=== PATIENT | female | born 1990 | race Hispanic/Latino ===

== ENCOUNTER 2024-04-03 12:12 | Emergency (ER) | payer BC ==
[~2024-04-03] VITALS: Ht 154.9 cm; Wt 68.0 kg
[2024-04-03 13:06] VITALS: BP 120/70; PULSE 76; RESP 16
== END 2024-04-03 13:23 | disposition home or self-care (01) ==
LOC: EDH 12:12
DX: T19.2XXA Foreign body in vulva and vagina, initial encounter (principal); Z71.1 Person with feared health complaint in whom no diagnosis is made; W44.8XXA Other foreign body entering into or through a natural orifice, initial encounter; Y93.89 Activity, other specified; Y92.89 Other specified places as the place of occurrence of the external cause; Y99.8 Other external cause status

== ENCOUNTER 2024-10-15 18:09 | Emergency (ER) | payer BC, OTHER ==
[~2024-10-15] VITALS: Ht 154.9 cm; Wt 70.3 kg
[2024-10-15 19:05] LABS: APPEARANCE,URINE CLOUDY (CLEAR); BILIRUBIN,URINE NEGATIVE (NEGATIVE); COLOR,URINE LIGHT-BROWN (YELLOW); GLUCOSE, URINE (UA) NEGATIVE (NEGATIVE); KETONES,URINE NEGATIVE (NEGATIVE); LEUKOCYTE ESTERASE ,URINE 250 Leu/uL (NEGATIVE); NITRATE,URINE NEGATIVE (NEGATIVE); OCCULT BLOOD,URINE LARGE (NEGATIVE); PROTEIN,URINE 30 mg/dL (NEGATIVE); UROBILINOGEN,URINE 0.2 mg/dL (0.2-1.0)
[2024-10-15 19:07] LABS: ADD UA MICROSCOPIC YES
[2024-10-15 19:09] LABS: HCG,QUALITATIVE URINE NEGATIVE (NEGATIVE)
[2024-10-15 19:17] LABS: RBC,URINE TNTC /HPF (0-1); WBC,URINE 26-50 /HPF (0-1)
--- NOTE | 2024-10-15 19:28 | ERN ---
General Chief Complaint: Blood in Urine: Stated Complaint: BLOOD IN URINE Time Seen by MD: 18:14 Time Seen by Midlevel: 18:14 Source: patient History of Present Illness Initial Comments Patient is a 34-year-old female with no significant past medical history presenting to the emergency department with hematuria and dysuria that started today. She reports going her symptoms and believes she may have bladder cancer. Denies being on her period. Denies . Allergies: Coded Allergies: No Known Drug Allergies (Unverified Allergy, Unknown, 04/03/24) Home Meds Active Scripts Sulfamethoxazole/Trimethoprim (Bactrim Ds Tablet) 800 Mg-160 Mg Tablet, 1 TAB PO BID for 7 Days, #14 TAB 0 Refills Prov:YANE ODONNELL 10/15/24 Past Medical History Past Medical History: No Pertinent History Past Surgical History: BTL Female( History) LMP: Sep 30, 2024 ROS Dictation CONSTITUTIONAL: Negative except for HPI HEAD/FACE: Negative except for HPI EENT: Negative except for HPI RESPIRATORY: Negative except for HPI GASTROINTESTINAL/ABDOMINAL: Negative except for HPI GENITOURINARY: Negative except for HPI MUSCULOSKELETAL: Negative except for HPI INTEGUMENTARY: Negative except for HPI NEUROLOGICAL/PSYCH: Negative except for HPI HEMATOLOGIC/LYMPHATIC: Negative except for HPI All Systems Negative, Except as noted above. 13 point review of systems assessed and all negative except for above. Physical Exam Physical Exam Dictation Vital Signs reviewed General Appearance: Alert, oriented x 3, no acute distress, well developed, nourished. Head and Face: non-traumatic. Eyes: PERRL, pink conjunctivas, eyelid no trauma, anterior chamber with arcus senilis. Ears: Pinnas intact and no signs of trauma or erythema ear canals clear and no discharge TM no erythema Nose: No discharge, no bleeding. Oropharynx: Mouth normal, tongue pink, pharynx clear,no erythema, tonsils no exudates, no abscesses noted, mucous membrane moist Neck: Supple, non-tender, no thyromegaly, no masses, no JVD, no bruits Breast:Deferred Chest:No tenderness, no crepitus, no paradoxical movement, no retractions Lungs:Clear, well-ventilated, symmetric, no rales, no wheezing, no rhonchi, no stridor, good breath sounds bilaterally Heart: Regular rate, regular rhythm, no murmur, no gallops Vascular: no peripheral edema, Abdomen: Soft, positive bowel sounds, nondistended, no guarding, nontender, no rebound, no masses no hepatomegaly, no splenomegaly, no Bennett's sign, no hernias. Rectal: Deferred Genital: Deferred Neurological: Normal speech, motor function intact, sensory function intact Musculoskeletal: Neck nontender, full range of motion, back nontender, full range of motion, Extremities: nontender, full range of motion Skin: Color pink, dry, no turgor, no rash, no lacerations, no abrasions, no contusions. Lymphatic: Deferred Results Laboratory and Microbiology Lab and Micro Result Laboratory Tests Test 10/15/24 18:44 10/15/24 19:16 Urine Color LIGHT-BROWN (YELLOW) Urine Appearance CLOUDY (CLEAR) H Urine pH 7.0 (5.0-8.0) Urine Specific [place] 1.011 (1.001-1.031) Urine Protein 30 mg/dL (NEGATIVE) H Urine Glucose (UA) NEGATIVE mg/dL (NEGATIVE) Urine Ketones NEGATIVE mg/dL (NEGATIVE) Urine Occult Blood LARGE (NEGATIVE) H Urine Nitrate NEGATIVE (NEGATIVE) Urine Bilirubin NEGATIVE mg/dL (NEGATIVE) Urine Urobilinogen 0.2 mg/dL (0.2-1.0) Urine Leukocyte Esterase 250 Shaka/uL (NEGATIVE) H Urine RBC TNTC /HPF (0-1) H Urine WBC 26-50 /HPF (0-1) H Urine Bacteria None /HPF (None Seen) Urine HCG, Qualitative NEGATIVE (NEGATIVE) White Blood Count 15.3 K/uL (4.8-10.8) H Red Blood Count 4.35 MIL/uL (4.00-5.50) Hemoglobin 12.9 g/dL (12.0-16.0) Hematocrit 39.5 % (36-48) Mean Corpuscular Volume 90.8 fL (79-99) Mean Corpuscular Hemoglobin 29.7 pg (27.0-33.0) Mean Corpuscular Hemoglobin Concent 32.7 g/dL (32.0-36.0) Red Cell Distribution Width 12.8 % (11.0-15.5) Platelet Count 305 K/uL (130-400) Mean Platelet Volume 10.2 fL (7.5-10.5) Immature Granulocyte % (Auto) 0.3 % (0-1) Neutrophils (%) (Auto) 68.6 % (40.0-77.0) Lymphocytes (%) (Auto) 22.1 % (21.0-51.0) Monocytes (%) (Auto) 8.0 % (3.0-13.0) Eosinophils (%) (Auto) 0.7 % (0.0-8.0) Basophils (%) (Auto) 0.3 % (0.0-5.0) Neutrophils # (Auto) 10.5 K/uL (1.8-7.7) H Lymphocytes # (Auto) 3.4 K/uL (1.0-4.8) Monocytes # (Auto) 1.2 K/uL (0.1-1.0) H Eosinophils # (Auto) 0.10 K/uL (0.00-0.70) Basophils # (Auto) 0.04 K/uL (0.00-0.20) Absolute Immature Granulocyte (auto 0.05 K/uL (0-1) Nucleated Red Blood Cells 0.0 % (0.0-0.19) Sodium Level 138 mmol/L (136-145) Potassium Level 3.4 mmol/L (3.5-5.1) L Chloride Level 100 mmol/L (101-111) L Carbon Dioxide Level 30 mmol/L (21-32) Blood Urea Nitrogen 13 mg/dL (7-18) Creatinine 0.5 mg/dL (0.5-1.0) Glomerular Filtration Rate Calc 127 mL/min (>90) Random Glucose 111 mg/dL (70-105) H Total Calcium 8.9 mg/dL (8.5-10.1) Labs Reviewed?: Yes MDM MDM: 34-year-old female presenting to the emergency department with dysuria and hematuria. On physical examination the patient is in no acute distress. She was anxious appearing in his tearful. She states she started gurgling her symptoms and believes she may have bladder or renal cancer. During her triage she has a heart rate in the 130s but does state she was very anxious. She specifically denies any lower back pain, fever, nausea, vomiting, or any other symptoms at this time. Her initial vital signs show a temperature of 97.7 with a heart rate of 125 beats per minute. Blood pressure stable at one 130/92. O2 saturation is 100% on room air. She has no CVA tenderness. She has no abdominal tenderness. Her CBC shows a leukocytosis of 15.3. Her chemistries show a potassium of 3.4 with a chloride of 100. Kidney function is normal. Her urinalysis shows hematuria with leuk esterase consistent with a urinary tract infection. I have a low suspicion for pyelonephritis at this time. I did discussed this with the patient and she was comfortable with trying oral antibiotics. She states that if she does not improve over the next 3-4 days she will return to the ER for further evaluation. She will be sitting an tara ointment with her OBGYN and primary care doctor after today for further evaluation. Patient was stable for discharge Differential diagnosis: Urinary tract infection, pyelonephritis, There are no social concerns with this patient. Prescription drug management Prescriptions will include: Bactrim Medical management and examination interpretation discussions were had by me with other qualified healthcare professionals as indicated for the patient's care. ED Course Orders Procedure Category Date Status Time Urinalysis Profile LAB 10/15/24 Complete 18:20 ,Urine Test LAB 10/15/24 Complete 18:20 Cbc With Differential LAB 10/15/24 Complete 18:22 Basic Metabolic Panel LAB 10/15/24 Complete 18:22 Culture Urine OMER 10/15/24 In Process 19:07 Ceftriaxone 1g Vial PHA 10/15/24 Logged (Rocephine 1g Inj) 21:00 Current Medications Medications (Trade) Dose Ordered Sig/Stormy Route PRN Reason Start Time Stop Time Status Last Admin Dose Admin Ceftriaxone Sodium (ROCEphine 1G INJ) 1 gm ONCE ONCE IM 10/15/24 21:00 10/15/24 21:01 UNV Vital Signs Date Time Temp Pulse Resp B/P (MAP) Pulse Ox O2 Delivery O2 Flow Rate FiO2 10/15/24 18:22 97.9 125 20 130/92 100 Room Air* 0 21 10/15/24 18:10 97.7 125 18 130/92 100 Room Air 0 DX & DISP Disposition: Discharge Departure Impression: Primary Impression: Urinary tract infection Additional Impressions: Hematuria, Leukocytosis Condition: Stable Scripts Sulfamethoxazole/Trimethoprim (Bactrim Ds Tablet) 800 Mg-160 Mg Tablet 1 TAB PO BID for 7 Days, #14 TAB 0 Refills Prov: YANE ODONNELL 10/15/24 Referrals: SELF,REFERRAL (PCP) I have reviewed the case, and I agree with, Diagnosis and Plan I performed the substantive portion of the visit. I have reviewed and personally made and approve the management plan that is documented in the note by myself or the TARA. I acknowledge for responsibility for the patient's management plan. YANE ODONNELL Oct 15, 2024 19:28
[2024-10-15 19:29] LABS: BASOPHILS # (AUTO) 0.04 K/uL (0.00-0.20); BASOPHILS % (AUTO) 0.3 % (0.0-5.0); EOSINOPHILS % (AUTO) 0.7 % (0.0-8.0); HEMATOCRIT 39.5 % (36-48); IMMATURE GRANULOCYTE ABSOLUTE 0.05 K/uL (0-1); LYMPHOCYTES # (AUTO) 3.4 K/uL (1.0-4.8); LYMPHOCYTES % (AUTO) 22.1 % (21.0-51.0); MEAN CORPUSCULAR HEMOGLOBIN 29.7 pg (27.0-33.0); MEAN CORPUSCULAR HGB CONC 32.7 g/dL (32.0-36.0); MEAN CORPUSCULAR VOLUME 90.8 fL (79-99); MONOCYTES # (AUTO) 1.2 K/uL (0.1-1.0); NEUTROPHILS # (AUTO) 10.5 K/uL (1.8-7.7); NEUTROPHILS % (AUTO) 68.6 % (40.0-77.0); PLATELET COUNT (AUTO) 305 K/uL (130-400); RED BLOOD CELL COUNT(AUTO) 4.35 MIL/uL (4.00-5.50); RED CELL DISTRIBUTION WIDTH 12.8 % (11.0-15.5); WHITE BLOOD COUNT (AUTO) 15.3 K/uL (4.8-10.8)
[2024-10-15 19:31] LABS: CREATININE 0.5 mg/dL (0.5-1.0); POTASSIUM 3.4 mmol/L (3.5-5.1)
[2024-10-15] MEDS ORDERED: SULF1TAB42 PO (20:36)
[2024-10-15] MEDS: cefTRIAXone 1G VIAL IM ONE (20:47)
[2024-10-15 20:49] VITALS: BP 129/87; PULSE 99; RESP 18; TEMP 98.3; O2SAT 99
== END 2024-10-15 21:34 | disposition home or self-care (01) ==
LOC: EDH 18:09
DX: N39.0 Urinary tract infection, site not specified (principal); R31.9 Hematuria, unspecified; D72.829 Elevated white blood cell count, unspecified; Z98.51 Tubal ligation status; Z79.899 Other long term (current) drug therapy
CPT/HCPCS: 99283; 80048; 85025; 87086; 81001; 81025; 36415; 96372; J0696